=== PATIENT | male | born 1995 | race African-American/Black ===

== ENCOUNTER 2018-02-25 18:47 | Emergency (ER) | payer BC ==
[~2018-02-25] VITALS: Wt 59.0 kg
[2018-02-25] MEDS ORDERED: ZOFRAN4 MG PO (20:42)
[2018-02-25] MEDS ORDERED: AUGMENTIN 875875 MG PO (20:42)
== END 2018-02-25 20:45 | disposition home or self-care (01) ==
LOC: ED 18:47
DX: J03.90 Acute tonsillitis, unspecified (principal); B34.9 Viral infection, unspecified; Z87.891 Personal history of nicotine dependence

== ENCOUNTER 2018-07-30 15:51 | Emergency (ER) | payer BC ==
[~2018-07-30] VITALS: Ht 172.7 cm; Wt 65.8 kg
[~2018-07-30 15:51] MED LIST: AUGMENTIN 875875 MG PO; ZOFRAN4 MG PO
[2018-07-30] MEDS ORDERED: ANAPROX DS550 MG PO (18:34)
== END 2018-07-30 18:59 | disposition home or self-care (01) ==
LOC: ED 15:51
DX: M54.5 Low back pain (principal); X58.XXXA Exposure to other specified factors, initial encounter; Y93.89 Activity, other specified; Y92.89 Other specified places as the place of occurrence of the external cause; Y99.8 Other external cause status